=== PATIENT | female | born 1970 | race Caucasian/White ===

== ENCOUNTER 2017-05-16 20:45 | Emergency (ER) | payer OTHER, BC ==
[~2017-05-16] VITALS: Ht 165.1 cm; Wt 81.1 kg
[~2017-05-16 20:45] MED LIST: CLON0.5T3 PO; SERT-234 PO
[2017-05-16 20:54] VITALS: TEMP 36.9; Ht 165.1 cm; Wt 81.1 kg
[2017-05-16] MEDS ORDERED: FERR325T PO (21:36)
--- NOTE | 2017-05-16 22:05 | EMERGENCY ROOM VISIT NOTE ---
ED Visit Note First contact with patient: 21:32 CHIEF COMPLAINT: Leg swelling and pain HISTORY OF PRESENT ILLNESS: This 46-year-old female patient presents with complaint of right lower extremity bruising on the swelling and pain. She states that her right leg was injured a week ago while she was in a classroom, a chair fell off of the desk and hit her in the back of the leg. She saw a workman's comp today, who were concerned about a possible blood clot and sent her to the emergency department to have this evaluated. Patient states initially that she had a lot of black and blue bruising to the back of her calf , this has been improving. However she has developed spreading pain proximal and distal to the bruised area just below her knee on the posterior calf. There has been no fever, and no unusual activity which may have strained a muscle recently. There has not been a long period of immobilization or long car or plane ride recently. There is no history of blood clots in the veins of the legs. She denies chest pain, shortness of breath, dizziness or syncope. REVIEW OF SYSTEMS: Head: No headache, injury or neck pain. Neurological: No headache, new changes in mental status, vertigo, focal weakness, numbness. Cardiac: No chest pain, diaphoresis, dyspnea on exertion, orthopnea, pedal edema, or palpitations. Respiratory: No cough, change in sputum, wheezes, hemoptysis, shortness of breath, or stridor. Gastrointestinal: No abdominal pain, blood in stools, diarrhea, loss of appetite, nausea, or vomiting. General : No fever or chills, fatigue, loss of appetite, or significant recent weight gain or loss. PMH: The patient is healthy; there is no significant medical or surgical history. SOCIAL HISTORY: Patient lives at home. PHYSICAL EXAM: Vital Signs: Reviewed Nurse's notes. HEART: Regular rate and rhythm without murmurs, ectopy, gallops, or rubs. LUNGS: Clear to auscultation and breath sounds equal, no wheezes, rales, or rhonchi. ABDOMEN: Soft, non- tender, no hepatosplenomegaly, or masses. NEUROLOGICAL: Alert oriented, coherent. PERRL, EOMI, gait normal. EXTREMITIES: No cyanosis, edema, joint tenderness or effusion. Pulses equal bilaterally. There is a large healing bruise to the posterior calf just below the knee, mildly tender to palpation. There is no redness or warmth of the leg. There is mild diffuse swelling and tenderness extending above and below the bruised area on the calf. No cords can be palpated and René's sign is negative. There is no lymphangitic streaking. EMERGENCY DEPARTMENT COURSE: I examined the patient. Differential diagnosis includes DVT, contusion, hematoma, muscle strain. Ultrasound exam of the leg does not show any evidence of deep venous thrombosis or other abnormality. The patient was updated on imaging results and plan for discharge. She was encouraged to continue following up [facility] for her follow-up. She was given return precautions should her symptoms worsen, she verbalized understanding. The patient was discharged home in stable condition and ambulatory. Medication Reconciliation: I attest that I have personally reviewed the patient' s current medication list. Blood pressure screening: The patient was found to have an elevated blood pressure and was referred to their primary doctor for recheck and further treatment. Problem List Medical Problems: (1) Migraines Status: Chronic Surgical Problems: (1) H/O section Status: Resolved (2) Hx of tonsillectomy Status: Resolved Current/Historical Medications Scheduled Ferrous Sulfate (Ferrous Sulfate), 325 MG PO DAILY Sertraline (Zoloft), 100 MG PO DAILY Allergies Coded Allergies: Erythromycin (Verified Allergy, Intermediate, HIVES, 05/21/16) Clindamycin (Verified Allergy, Mild, 05/21/16) Macrolides (Verified Allergy, Mild, 05/21/16) Penicillins (Verified Allergy, Mild, 05/21/16) Sulfa Drugs (Verified Allergy, Mild, 05/21/16) Sulfamethoxazole (Verified Allergy, Mild, 05/21/16) Sulfamethoxazole w/Trimethoprim (Verified Allergy, Mild, RASH, 05/21/16) Trimethoprim (Verified Allergy, Mild, 05/21/16) Amoxicillin (Verified Allergy, Unknown, HIVES/SYNCOPE, 05/21/16) Vital Signs Date Time Temp Pulse Resp B/P (MAP) Pulse Ox O2 Delivery O2 Flow Rate FiO2 05/16/17 22:44 87 20 146/78 96 05/16/17 20:54 36.9 92 20 177/77 99 Room Air Departure Information Impression Primary Impression: Contusion of right lower leg Dispostion Home / Self-Care Condition GOOD Referrals Joel Dumont M.D. (PCP) Patient Instructions ED Contusion Lower Ext, My [facility] Additional Instructions You have been treated in the Emergency Department for right leg pain. The ultrasound study of your leg shows no blood clot. For pain control, you can use the following [id number] medicines (if >12 yo): - Regular strength (325mg/tab) Tylenol (acetaminophen) 2 tabs every 4-6 hours as needed. Do not exceed 10 tablets in a 24 hour period. Avoid taking more than 3000 mg of Tylenol per day. This includes any other sources of acetaminophen you may take on a regular basis. - Regular strength (200 mg/tab) Advil (ibuprofen) 2-3 tabs every 4-6 hours as needed. Do not exceed a dose of 2400 mg per day. Apply moist heat to the painful, swollen area of your leg to help with discomfort. Continue to follow-up with your PCP or Workmen's Comp. for management of your leg pain. Return to the Emergency Department if your current symptoms worsen despite treatment course outlined above. Work Instructions Return To Work: 1 day Problem Qualifiers Primary Impression: Contusion of right lower leg Encounter type: initial encounter Qualified Codes: S80.11XA - Contusion of right lower leg, initial encounter
--- NOTE | 2017-05-16 22:20 | DIAGNOSTIC IMAGING REPORT ---
ULTRASOUND RIGHT VENOUS DOPP LOWER EXT UNILAT CLINICAL HISTORY: Right leg swelling COMPARISON STUDY: No previous studies for comparison. FINDINGS: Real-time and color flow Doppler imaging were performed. Flow was seen within the femoral, popliteal and calf veins with no intraluminal thrombus demonstrated. The saphenous vein is patent. IMPRESSION: No evidence of right lower extremity DVT. Electronically signed by: Georges Kidd M.D. 05/16/2017 10:18 PM Dictated Date/Time: 05/16/2017 10:18 PM
[2017-05-16 22:44] VITALS: BP 146/78; PULSE 87; O2SAT 96
== END 2017-05-16 22:46 | disposition home or self-care (01) ==
LOC: C.EDB 20:47 → C.EDD 22:46
DX: S80.11XA Contusion of right lower leg, initial encounter (principal); W20.8XXA Other cause of strike by thrown, projected or falling object, initial encounter; Y92.219 Unspecified school as the place of occurrence of the external cause; Y99.0 Civilian activity done for income or pay; G43.909 Migraine, unspecified, not intractable, without status migrainosus

== ENCOUNTER 2017-09-23 16:48 | Emergency (ER) | payer BC, OTHER ==
[~2017-09-23] VITALS: Ht 165.1 cm; Wt 82.6 kg
[~2017-09-23 16:48] MED LIST changes: -CLON0.5T3 PO; +FERR1TAB62 PO
[2017-09-23 17:16] VITALS: Ht 165.1 cm; Wt 82.6 kg
[2017-09-23] MEDS ORDERED: ACETAMINOPHEN IV 1,000 MG in EMPTY BAG 0 ML IV STA (17:55)
[2017-09-23] MEDS ORDERED: ONDANSETRON 8 MG/54 ML D5W IV STA (17:55)
[2017-09-23] MEDS ORDERED: SODIUM CHLORIDE 0.9% 1000ML 1,000 ML IV STA (17:55)
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
[2017-09-23 18:16] LABS: BASO % 0.2 %; BASO ABS # 0.01 K/uL (0-0.2); EOS % 0.5 %; EOS ABS # 0.03 K/uL (0-0.5); HEMATOCRIT 36.9 % (37-47); HEMOGLOBIN 12.3 g/dL (12.0-16.0); IG# 0.01 K/uL (0.00-0.02); LYMPH % 3.8 %; LYMPH ABS # 0.25 K/uL (1.2-3.4); MEAN CELL VOLUME 88.5 fL (80-100); MEAN CORPUSCULAR HEMOGLOBIN 29.5 pg (25-34); MEAN CORPUSCULAR HGB CONC 33.3 g/dl (32-36); MEAN PLATELET VOLUME 9.1 fL (7.4-10.4); MONO % 10.3 %; MONO ABS # 0.67 K/uL (0.11-0.59); NEUT ABS # 5.56 K/uL (1.4-6.5); PLATELET COUNT 178 K/uL (130-400); RED CELL DISTRIBUTION WIDTH CV 13.7 % (11.5-14.5); RED CELL DISTRIBUTION WIDTH SD 44.2 fL (36.4-46.3); WHITE BLOOD COUNT 6.53 K/uL (4.8-10.8)
[2017-09-23 18:32] LABS: CALCIUM 8.9 mg/dl (8.5-10.1); CREATININE 0.68 mg/dl (0.60-1.20); POTASSIUM 3.6 mmol/L (3.5-5.1)
[2017-09-23 18:35] LABS: TOTAL PROTEIN 7.5 gm/dl (6.4-8.2)
[2017-09-23] MEDS ORDERED: KETOROLAC TROMETHAMINE 30 MG/ML VIAL IV STA (18:42)
[2017-09-23 18:59] LABS: INFLUENZA B ANTIGEN Neg for Influ B (NEG)
[2017-09-23] MEDS ORDERED: ONDANSETRON HOME PACK 4MG OD TAB PO ONE (20:45)
[2017-09-23 21:05] VITALS: BP 105/74; PULSE 103; TEMP 37.3; O2SAT 98
== END 2017-09-23 21:05 | disposition home or self-care (01) ==
LOC: C.EDB 16:49 → C.EDC 21:05
DX: R51 Headache (principal); R50.9 Fever, unspecified; R11.10 Vomiting, unspecified; R10.10 Upper abdominal pain, unspecified; M54.2 Cervicalgia; Z98.891 History of uterine scar from previous surgery; Z90.89 Acquired absence of other organs; Z82.49 Family history of ischemic heart disease and other diseases of the circulatory system; Z80.8 Family history of malignant neoplasm of other organs or systems